=== PATIENT | male | born 1995 | race Caucasian/White ===

== ENCOUNTER 2019-05-29 09:07 | Outpatient (CLI) | payer OTHER, SELFPAY | END 2019-05-29 09:08 | disposition home or self-care (01) | PROVIDERS: PCP Pediatrics | DX: L40.0 Psoriasis vulgaris (principal); Z79.899 Other long term (current) drug therapy | CPT/HCPCS: 36415; 86480 ==

== ENCOUNTER 2021-09-29 17:09 | Outpatient (CLI) | payer BC, SELFPAY ==
[2021-10-01 13:06] LABS: NIL 0.02 IU/mL; Quantiferon TB Plus, 1T NEGATIVE (NEGATIVE); TB2-NIL <0.00 IU/mL
== END 2021-09-29 17:10 | disposition home or self-care (01) ==
LOC: ANHLAB 17:15
PROVIDERS: PCP Pediatrics
DX: L40.0 Psoriasis vulgaris (principal); Z79.899 Other long term (current) drug therapy
CPT/HCPCS: 36415; 86480